=== PATIENT | male | born 1960 | race Caucasian/White ===

== ENCOUNTER 2024-03-27 10:01 | Day surgery (SDC) | payer BC, OTHER ==
[2024-03-27 10:55] LABS: BASOPHILS ABSOLUTE AUTO 0.03 K/uL (0.00-0.20); BASOPHILS PERCENT AUTO 0.2 % (0.0-1.0); EOSINOPHILS ABSOLUTE AUTO 0.01 K/uL (0.00-0.45); EOSINOPHILS PERCENT AUTO 0.1 % (0.0-6.0); HEMATOCRIT 39.8 % (42.0-52.0); IMMATURE GRAN ABSOLUTE AUTO 0.06 K/uL (0.00-0.05); IMMATURE GRAN PERCENT AUTO 0.4 % (0.0-0.4); LYMPHOCYTES PERCENT AUTO 9.7 % (24.0-44.0); MEAN CORPUSCULAR HEMOGLOBIN 30.8 pg (28.0-32.0); MEAN CORPUSCULAR HGB CONC 35.2 g/dL (32.0-36.0); MEAN CORPUSCULAR VOLUME 87.7 fL (83.0-99.0); MEAN PLATELET VOLUME 10.5 fL (9.4-12.4); MONOCYTES ABSOLUTE AUTO 0.56 K/uL (0.00-0.80); MONOCYTES PERCENT AUTO 4.2 % (0.0-8.0); NEUTROPHILS ABSOLUTE AUTO 11.49 K/uL (1.80-7.70); NEUTROPHILS PERCENT AUTO 85.4 % (41.0-71.0); PLATELET COUNT,PLT 270 K/uL (150-400); RED BLOOD CELL COUNT 4.54 M/uL (4.52-5.90); WHITE BLOOD CELL COUNT,WBC 13.45 K/uL (3.9-11.3)
[2024-03-27] MEDS: Sodium Chloride 0.9% 1,000 ML IV STA (10:58)
[2024-03-27 11:18] LABS: A/G RATIO 1.1 (0.9-1.6); BILIRUBIN TOTAL 0.5 mg/dL (0.2-1.0); CALCIUM 8.7 mg/dL (8.5-10.1); CARBON DIOXIDE,CO2 26.9 mmol/L (21.0-32.0); CREATININE 1.1 mg/dL (0.8-1.3); EST CRCL DRUG DOSING (CG) 55.32 mL/min; PROTEIN TOTAL,TP 7.5 g/dL (6.4-8.2)
[2024-03-27] MEDS: Iopamidol 755 MG/ML 500 ML Multipack Bottle IVPUSH STA (12:13)
[2024-03-27 12:58] LABS: APPEARANCE,URINE CLEAR; BILIRUBIN,URINE NEGATIVE (NEGATIVE); COLOR,URINE YELLOW; GLUCOSE,URINE NEGATIVE (NEGATIVE); KETONES,URINE TRACE mg/dL (NEGATIVE); LEUKOCYTE ESTERASE,URINE NEGATIVE (NEGATIVE); NITRITE,URINE NEGATIVE (NEGATIVE); OCCULT BLOOD,URINE NEGATIVE (NEGATIVE); PROTEIN,URINE NEGATIVE (NEGATIVE); UROBILINOGEN,URINE 0.2 EU/dL (<2.0)
[2024-03-27] MEDS: Ondansetron 4 MG/2 ML SDV IVPUSH STA (13:06)
[2024-03-27] MEDS: Ketorolac 30 MG/ML SDV IVPUSH STA (13:06)
[2024-03-27 14:05] LABS: HEMOGLOBIN A1C 7.2 %
[2024-03-27] MEDS ORDERED: Bupivacaine 0.25% 30 ML SDV ONE (14:17)
[2024-03-27] MEDS ORDERED: Ropivacaine 0.5% 5 MG/ML 30 ML SDV ONE (14:17)
[2024-03-27] MEDS ORDERED: Metoclopramide 10 MG/2 ML SDV IVPUSH PRN (14:17)
[2024-03-27] MEDS ORDERED: Morphine 2 MG/ML SYRINGE IVPUSH PRN (14:17)
[2024-03-27] MEDS ORDERED: Ondansetron 4 MG/2 ML SDV IVPUSH PRN ×2 (14:17→15:37)
[2024-03-27] MEDS ORDERED: fentaNYL 50 MCG/ML SDV IVPUSH PRN (14:17)
[2024-03-27] MEDS ORDERED: Naloxone 0.4 MG/ML SDV IVPUSH PRN (14:17)
[2024-03-27] MEDS ORDERED: HYDROmorphone 1 MG/ML Syringe IVPUSH PRN (14:17)
[2024-03-27] MEDS ORDERED: EPINEPHrine 1 MG/1 ML Amp ONE (14:17)
[2024-03-27] MEDS ORDERED: Albuterol 0.083% 2.5 MG/3 ML Neb Soln NEB PRN (14:17)
[2024-03-27] MEDS ORDERED: droPERidol 5 MG/2 ML SDV IVPUSH PRN (14:17)
[2024-03-27] MEDS ORDERED: Bupivacaine 0.5% 30 ML SDV ONE (14:20)
[2024-03-27] MEDS ORDERED: Rocuronium Bromide 50 MG/5 ML Syringe ONE (14:28)
[2024-03-27] MEDS ORDERED: Sugammadex Sodium 200 MG/2 ML VIAL IV ONE (14:28)
[2024-03-27] MEDS ORDERED: Lidocaine 2% 5 ML SDV ONE (14:28)
[2024-03-27] MEDS ORDERED: Dexamethasone 4 MG/ML 5 ML MDV ONE (14:28)
[2024-03-27] MEDS ORDERED: Ketorolac 30 MG/ML SDV ONE (14:28)
[2024-03-27] MEDS ORDERED: Propofol 200 MG/20 ML SDV ONE (14:29)
[2024-03-27] MEDS ORDERED: fentaNYL 100 MCG/2 ML SDV ONE (14:29)
[2024-03-27] MEDS ORDERED: Ketamine HCL/NACL, ISO-OSM 50 MG/5 ML Syringe ONE (14:46)
[2024-03-27] MEDS ORDERED: Sodium Chloride 0.9% 2.5 ML Syringe FLUSH PRN (15:37)
[2024-03-27] MEDS ORDERED: Bisacodyl 5 MG Tab PO PRN (15:37)
[2024-03-27] MEDS ORDERED: Sodium Chloride 0.9% 20 ML SDV IV PRN (15:37)
[2024-03-27] MEDS ORDERED: Sodium Chloride 0.9% 10 ML Syringe FLUSH PRN (15:37)
[2024-03-27] MEDS: Piperacillin/Tazobactam 4.5 GM in Sodium Chloride 0.9% 100 ML IV ONE (16:39)
[2024-03-27] MEDS: Acetaminophen/HYDROcodone 325-5 MG Tab PO PRN (23:52)
== END 2024-03-28 11:15 | disposition home or self-care (01) ==
LOC: MW.ED 10:01 → MW.SDS 13:54 → MW.MS 15:28 → MW.SDS 03-28 11:15
PROVIDERS: ATTEND Surgery
DX: K42.0 Umbilical hernia with obstruction, without gangrene (principal); K56.609 Unspecified intestinal obstruction, unspecified as to partial versus complete obstruction; I10 Essential (primary) hypertension; E78.5 Hyperlipidemia, unspecified; E11.9 Type 2 diabetes mellitus without complications; Z79.899 Other long term (current) drug therapy
CPT/HCPCS: 36415; 49592; 64488; 74177; 80053; 81003; 83036; 83690; 85025; 96361; 96374; 96375; 99285; A9270; J0171; J0665; J1100; J1885; J2405; J2704; J2795; J3010; J3490; J7030; Q9967; 99284

== ENCOUNTER 2024-12-23 13:01 | Emergency (ER) | payer OTHER ==
[2024-12-23] MEDS: Ketorolac 30 MG/ML SDV IM STA (15:17)
== END 2024-12-23 16:08 | disposition home or self-care (01) ==
LOC: MW.ED 13:01
DX: S22.31XA Fracture of one rib, right side, initial encounter for closed fracture (principal); I10 Essential (primary) hypertension; E11.9 Type 2 diabetes mellitus without complications; Z75.8 Other problems related to medical facilities and other health care; Z79.84 Long term (current) use of oral hypoglycemic drugs; Z79.899 Other long term (current) drug therapy; W00.0XXA Fall on same level due to ice and snow, initial encounter; X50.1XXA Overexertion from prolonged static or awkward postures, initial encounter
CPT/HCPCS: 71101; 96372; 99283; J1885